=== PATIENT | male | born 1960 | race Caucasian/White ===

== ENCOUNTER 2024-02-20 12:23 | Emergency (ER) | payer BC, SELFPAY ==
[2024-02-20 12:52] VITALS: BP 163/94; PULSE 56; RESP 18; TEMP 36.2
--- NOTE | 2024-02-20 13:39 | ED.GENADUL_ITS ---
Discharge Plan Disposition Patient Disposition: Home Condition: Stable Discharge Details Clinical Impression: Laceration of fifth toe of left foot Primary Care Provider: Mckayla,Local ED Provider: Temi Blanton Home Meds and New Rx's Prescriptions: No Action No Known Home Meds Discharge Instructions Instructions: Toe Injury, Laceration Repair With Stitches ED Additional Instructions: Have sutures removed in 7 days. Be seen sooner for any signs of infection, red streaks, drainage swelling or concerns. After 12 to 24 hours you may wash under running soap and water. Allow to air dry at least 2 hours a day. No soaking or swimming. Referrals: Primary Care Provider [Outside] - 5 days HPI General Mode of arrival: ambulatory . Date/Time Provider Initiated Documentation: 02/20/24 13:18 . Limitations to Documentation: no limitations . Information obtained by: patient, RN notes reviewed and old records reviewed . HPI Narrative: 63 year old male presents to the ER with cc of lacertion to left 5th toe which occured by chainsaw at approximately 1130 this am. He has a macerated left pinky toe, multiple flaps and lacerations noted. Bleeding controlled. Distal CMS intact prior to anesthesia. No other complaints or injuries noted. Unknown when his last tetanus was. Related Data Home Medications ?Medication ?Instructions ?Recorded ?Confirmed Unknown [No Known Home Meds] 02/20/24 02/20/24 Allergies Allergy/AdvReac Type Severity Reaction Status Date / Time No Known Allergies Allergy Unverified 02/20/24 12:56 General Stated Complaint: Laceration CIRO: 3 Exam Extrem Left lower extremity: foot Details: laceration (multiple lacerations) lateral 5th toe Details: irregular and involving subcutaneous tissue Course Vital Signs Vital signs: Vital Signs Temperature 36.2 C L 02/20/24 12:52 Pulse 56 L 02/20/24 12:52 Respiratory Rate 18 02/20/24 12:52 Blood Pressure 163/94 H 02/20/24 12:52 Temperature 36.2 C L 02/20/24 12:52 Pulse 56 L 02/20/24 12:52 Respiratory Rate 18 02/20/24 12:52 Respiratory Effort Normal 02/20/24 12:56 Blood Pressure 163/94 H 02/20/24 12:52 Blood Pressure Position Supine 02/20/24 12:52 Oxygen Delivery Method Room Air 02/20/24 12:52 Oxygen Flow Rate 0 02/20/24 12:52 Pain Level 3 02/20/24 12:52 Procedures Laceration Laceration 1: Site: lower extremity (left 5th toe) Side (If applicable): left Size (cm): 1 Description: flap, irregular and contaminated Depth: simple, single layer Local anesthetic: Lidocaine 1% Amount of anesthesia used (mL): 4 Pre-repair: wound explored and irrigated extensively Skin layer closed with: nylon Size (cm): 4-0 Number of sutures: 6 Technique: simple, interrupted Nerve Block Nerve Block 1: Time out performed: Yes Local Anesthetic: Lidocaine 1% Amount of anesthesia used (mL): 4 Side: left Nerve Blocks: digital (5th toe) Procedure Successful: Yes Patient Tolerated Procedure: well Complications: none Medical Decision Making 63 year old male presents to the ER with cc of lacertion to left 5th toe which occured by chainsaw at approximately 1130 this am. He has a macerated left pinky toe, multiple flaps and lacerations noted. Bleeding controlled. Distal CMS intact prior to anesthesia. No other complaints or injuries noted. Unknown when his last tetanus was. Imaging obtained, no fracture or foreign body. Laceration cleaned with chlorhexidine scrub, digital block performed anesthesia achieved patient tolerated well. Laceration somewhat approximated with 6 simple interrupted sutures. Will apply bacitracin and nonadherent dressing. Discussed home care strict return instructions and follow-up care he verbalized understanding. This text was generated using [employer] system, please disregard any oddities of phrase or misspellings. Imaging Data Radiologic Study: Imaging: X-Ray Radiologist's impression: EXAM: XR FOOT LT COMPLETE CLINICAL HISTORY: 5th toe laceration. TECHNIQUE: 2D digital imaging was performed of the left foot. Three images were obtained. AP, oblique and lateral views were obtained. COMPARISON: No exams were available for comparison FINDINGS: BONES: No acute fracture is present. No bony destructive lesion is seen. JOINTS: No dislocation present. Moderately severe degenerative changes are seen at the 1st MTP joint. Large osteophytes are seen on the dorsal aspect of the 1st metatarsal head. There is an accessory bone in the soft tissues anterior to the 1st MTP joint on the lateral view. These are chronic changes. SOFT TISSUE: Normal. IMPRESSION: No acute fracture or dislocation. No radiopaque foreign bodies are seen in the soft tissues. Quality:SDOH Health Related Social Needs: No Data to Display PFSH All Active Problems (Updated 02/20/24 @ 15:12 by Temi Blanton NP) Laceration of fifth toe of left foot (Acute) Social History Smoking/Tobacco Use Status: Never Smoking risk assessment performed?: Yes Alcohol Intake: current Alcohol Intake frequency: holidays/special occasions only Alcohol type: beer Drug use: Never Substance use type: does not use Housing: house Do you feel safe at home: Yes Do you feel safe in your relationship?: Yes
--- NOTE | 2024-02-20 14:10 | DI.RAD_ITS ---
Exam(s) XR FOOT LT COMPLETE EXAM: XR FOOT LT COMPLETE CLINICAL HISTORY: 5th toe laceration. TECHNIQUE: 2D digital imaging was performed of the left foot. Three images were obtained. AP, obli que and lateral views were obtained. COMPARISON: No exams were available for comparison FINDINGS: BONES: No acute fracture is present. No bony destructive lesion is seen. JOINTS: No dislocation present. Moderately severe degenerative changes are seen at the 1st MTP joint. Large osteophytes are seen on the dorsal aspect of the 1st metatarsal head. There is an accessory bone in the soft tissues anterior to the 1st MTP joint on the lateral view. These are chronic change s. SOFT TISSUE: Normal. IMPRESSION: No acute fracture or dislocation. No radiopaque foreign bodies are seen in the soft tissues. DATA REPOSITORY: RADIATION DOSE DELIVERED:
== END 2024-02-20 15:33 | disposition home or self-care (01) ==
PROVIDERS: Emergency Provider Registered Nurse Emergency
DX: S91.115A Laceration without foreign body of left lesser toe(s) without damage to nail, initial encounter (principal); Z23 Encounter for immunization; W29.3XXA Contact with powered garden and outdoor hand tools and machinery, initial encounter
CPT/HCPCS: 12001; 90471; 90715; 99284; 73630; 99283; J2003